=== PATIENT | female | born 1995 | race Caucasian/White ===

== ENCOUNTER 2019-07-03 23:30 | Outpatient (CLI) | payer MEDICAID ==
[~2019-07-03] VITALS: Ht 154.9 cm; Wt 80.9 kg
--- NOTE | 2019-07-03 23:35 | NUR ---
SARAI PALACIOS presented to unit via ambulatory from ED, accompanied by s/o, with c/o CONTRACTIONS. SARAI PALACIOS weighed, gowned, voided, and to bed. EFHM and TOCO applied, VS taken. SARAI PALACIOS oriented to bed controls, call light, TV, heat, and A/C controls. above details and further assessments completed per H.ANA CHAVES.
[2019-07-03 23:37] VITALS: BP 0/0
--- NOTE | 2019-07-03 23:45 | NUR ---
SVE PERFORMED 2-3CM 60%
[2019-07-03] MEDS ORDERED: ACYC400T PO (23:49)
[2019-07-04 00:06] LABS: BILIRUBIN,URINE NEGATIVE (NEGATIVE); CLARITY,URINE CLEAR; COLOR,URINE YELLOW; GLUCOSE, URINE (UA) NEGATIVE (NEGATIVE); KETONES,URINE NEGATIVE (NEGATIVE); LEUKOCYTE ESTERASE ,URINE 2+ (NEGATIVE); NITRITE,URINE NEGATIVE (NEGATIVE); PROTEIN,URINE NEGATIVE (NEGATIVE)
[2019-07-04 00:15] LABS: BACTERIA,URINE FEW /HPF
--- NOTE | 2019-07-04 01:00 | NUR ---
SVE PERFORMED 3CM 60%, BLOODY SHOW
--- NOTE | 2019-07-04 01:07 | NUR ---
notified of pt's arrival, sve, u/a results, and tracing. new orders received.
--- NOTE | 2019-07-04 01:15 | NUR ---
Discussed options with patient. Gave patient the option to be monitored for another hour or discharge home and return with they increase in pain. Pt discussed with s/o. After further discussion pt is going to stay and be monitored another hour.
--- NOTE | 2019-07-04 02:00 | NUR ---
sve performed. no cervical change noted. pt wishes to be discharged home.
--- NOTE | 2019-07-04 02:30 | NUR ---
Discharge paperwork discussed with pt. labor precautions given. pt verbalized understanding. pt discharged home with s/o at side.
--- NOTE | 2019-07-05 08:19 | Physician Query-Final Dx ---
PATRICK MCWILLIAMS 07/05/19 0819: Clinic Account Progress/Dx Physician Query: Please give diagnosis Please include # weeks gestation Date of Service Jul 03, 2019 at 23:30 DAREK DAVALOS MD 07/05/19 1907: Clinic Account Progress/Dx DIAGNOSIS: Diagnosis 39 weeks gestation Contractions without active labor PATRICK MCWILLIAMS Jul 05, 2019 08:19 DAREK DAVALOS MD Jul 05, 2019 19:07
== END 2019-07-04 02:30 | disposition home or self-care (01) ==
LOC: WSo 23:30 → LDRP 23:30 → WSo 07-04 02:30
PROVIDERS: ATTEND Family Medicine
DX: O62.9 Abnormality of forces of labor, unspecified (principal); Z3A.39 39 weeks gestation of pregnancy
CPT/HCPCS: 81000; 87088; 99213

== ENCOUNTER 2019-07-04 17:15 | Inpatient (IN) | payer MEDICAID ==
[2019-07-04] VITALS (34 sets, daily range): BP systolic 84–193; BP diastolic 50–83
[~2019-07-04] VITALS: Ht 154 cm; Wt 80.9 kg
[~2019-07-04 17:15] MED LIST: ACYC400T PO
--- NOTE | 2019-07-04 17:30 | NUR ---
SARAI PALACIOS presented to unit via w/c from ED, accompanied by s/o, with c/o contractions. Pt. weighed, gowned, voided, and to bed. EFHM and TOCO applied, VS taken. Pt. oriented to bed controls, call light, TV, heat, and A/C controls.
--- NOTE | 2019-07-04 17:35 | NUR ---
breathing with ctx's. SVE 5cm, 80%, -1. vertex. reports out to hospital last noc, was 2.5-3cm
--- NOTE | 2019-07-04 17:39 | NUR ---
was called on cell phone. no answer. message left.
--- NOTE | 2019-07-04 17:40 | NUR ---
returned phone call. reviewed admit c/o and SVE. admission orders received. will check with Dr. Gallo to see if available for delivery.
[2019-07-04] MEDS ORDERED: LACTATED RINGERS 1,000 ML IV ONE (17:41)
[2019-07-04] MEDS ORDERED: D5 LR IV SOLUTION 1,000 ML IV ONE (17:41)
--- NOTE | 2019-07-04 17:50 | NUR ---
#20g IV to Rt.hand x1 attempt by this RN. admission labs collected from site prior to LR bolus infusing via IV pump.
--- NOTE | 2019-07-04 18:03 | NUR ---
was called. no answer, message left on cell phone.
--- NOTE | 2019-07-04 18:08 | NUR ---
returned phone call. Dr. Gallo will be taking over care of pt. order received for IV Fentanyl
[2019-07-04] MEDS ORDERED: fentaNYL INJECTION 100 MCG/2 ML AMP IVP PRN (18:15)
[2019-07-04] MEDS ORDERED: D5 LR IV SOLUTION 1,000 ML IV SCH (18:17)
--- NOTE | 2019-07-04 18:20 | NUR ---
SVE 6cm, 90%, 0 station. small amount bloody show noted
--- NOTE | 2019-07-04 18:22 | NUR ---
Fentanyl 25mcg IV given. breathing with ctx's, crying.
[2019-07-04 18:25] LABS: BASOPHILS % (AUTO) 0 % (0-10); EOSINOPHILS % (AUTO) 0 % (0-10); HEMATOCRIT 37 % (35-52); HEMOGLOBIN 13.4 G/DL (11.5-16.0); LYMPHOCYTES # (AUTO) 1.7 X 10^3 (1.0-4.0); LYMPHOCYTES % (AUTO) 7 % (12-44); MEAN CORPUSCULAR HEMOGLOBIN 30 PG (25-34); MEAN CORPUSCULAR HGB CONC 36 G/DL (32-36); MEAN CORPUSCULAR VOLUME 83 FL (80-99); MEAN PLATELET VOLUME 10.5 FL (7.4-10.4); MONOCYTES # (AUTO) 0.9 X 10^3 (0.0-1.0); MONOCYTES % (AUTO) 4 % (0-12); NEUTROPHILS # (AUTO) 20.4 X 10^3 (1.8-7.8); NEUTROPHILS % (AUTO) 89 % (42-75); PLATELET COUNT 219 10^3/uL (130-400); RED CELL DISTRIBUTION WIDTH 12.5 % (10.0-14.5)
[2019-07-04 18:29] LABS: BILIRUBIN,URINE NEGATIVE (NEGATIVE); CLARITY,URINE CLEAR; COLOR,URINE YELLOW; GLUCOSE, URINE (UA) NEGATIVE (NEGATIVE); KETONES,URINE 1+ (NEGATIVE); LEUKOCYTE ESTERASE ,URINE NEGATIVE (NEGATIVE); NITRITE,URINE NEGATIVE (NEGATIVE); PH,URINE 8.5 (5-9); PROTEIN,URINE 1+ (NEGATIVE)
[2019-07-04 18:36] LABS: BACTERIA,URINE FEW /HPF
--- NOTE | 2019-07-04 18:38 | NUR ---
JORDIN Deng notified of pt's request for epidural placement.
--- NOTE | 2019-07-04 18:40 | NUR ---
was called with SVE update.
[2019-07-04 18:46] LABS: BAND NEUTROPHILS 6 %; LYMPHOCYTES % (MANUAL) 5 %; MONOCYTES % (MANUAL) 2 %; NEUTROPHILS % (MANUAL) 87 %; RBC MORPH NORMAL
[2019-07-04] MEDS ORDERED: OXYTOCIN PRE-MIX DRIP 500 ML IV ONE (18:48)
[2019-07-04] MEDS ORDERED: SUFENTA 0.6MCG/ML BUPIVA 0.125 100 ML ONE (18:48)
[2019-07-04] MEDS ORDERED: BUPIVACAINE 0.25% 30 ML (SENSORCAINE) VIAL ONE (19:15)
[2019-07-04] MEDS ORDERED: LIDOCAINE PF 2% 5 ML (XYLOCAINE) VIAL ONE (19:15)
[2019-07-04] MEDS ORDERED: LACTATED RINGERS 1,000 ML IV SCH (19:43)
[2019-07-04] MEDS ORDERED: EPIDURAL (SUFENTA 0.6MCG/ML BUPIVA 0.125%) 100 ML BAG EPI PRN (19:45)
[2019-07-04] MEDS ORDERED: diphenhydrAMINE 50 MG/ML INJ (BENADRYL) IV PRN (19:45)
[2019-07-04] MEDS ORDERED: ONDANSETRON 4 MG/2 ML (SDV) Z0FRAN IV PRN (19:45)
[2019-07-04] MEDS ORDERED: NALOXONE 0.4 MG/ML 1 ML (NARCAN) VIAL IV PRN (19:45)
[2019-07-04] MEDS ORDERED: OXYTOCIN PRE-MIX DRIP 500 ML IV SCH ×2 (20:27→22:25)
--- NOTE | 2019-07-04 20:35 | History & Physical-OB ---
OB - Chief Complaint & HPI Date/Time Date of Admission: Date of Admission: Jul 04, 2019 at 17:40 Date seen by a Provider: Jul 04, 2019 Time Seen by a Provider: 20:30 Chief Complaint/History OB-Reason for Admission/Chief: Onset of Labor Hx : 2 Hx Para: 0 Expected Date of Delivery: Jul 06, 2019 Gestational Age in Weeks: 39 Gestational Age in Days: 5 Other reason for admission: Onset of labor. Ctxs started last night. She was seen as an outpatient and did not have an cervical change and was sent home. States that ctxs started getting stronger this afternoon. Denies any LOF. Having good movement History of Labs O+, Ab neg Rub Imm HIV/HepB/RPR NR GC/Chyl neg Normal 1 hr GTT GBS neg Allergies and Home Medications Allergies Coded Allergies: Penicillins (Verified Allergy, Mild, 07/04/19) Home Medications Acyclovir 400 Mg Tablet, 400 MG PO DAILY, (Reported) Patient Home Medication List Home Medication List Reviewed: Yes OB - History Hx of Present Care: Yes Ultrasounds: Normal mid trimester US Obstetrical Complications: None Medical Complications: None Information Induced Hypertension: No Maternal Gestational Diabetes: No Hemorrhage: No Obstetrical History Hx : 2 Hx Para: 0 Number of Living Children: 0 Delivery History Adverse Rxn to Tranfusion: No Patient Past Medical History N/A Social History/Family History HIV/AIDS: No Recent Infectious Disease Expo: No Sexually Transmitted Disease: Yes (HSV) Alcohol Use: Denies Use Recreational Drug Use: No Smoking Cessation: Never smoker 2nd Hand Smoke Exposure: No Immunizations Tetanus Booster (TDap): Less than 5yrs (05/03/19) Date of Influenza Vaccine: Feb 23, 2019 Rubella: immune RPR/VDRL: Negative GBS Status: Negative HBsAG: Negative OB - Admission Exam Physical Exam Vitals: Vital Signs 07/04/19 19:45 Pulse 126 Resp 18 B/P (MAP) 98/60 (73) Pulse Ox 99 O2 Delivery Room Air HEENT: NCAT Heart: Rhythm Normal Lungs: Clear Abdomen: Gravid Extremities: Normal Reflexes: Normal Cervical Dilatation: 6cm Effacement: 100% Station: 0 Membranes: Ruptured Amniotic Fluid: Clear Heart Rate: 140's Decelerations: No Decelerations Contractions on Admission: 6-10 Minutes Apart Labs Laboratory Tests Test 2/9/20 17:30 07/04/19 17:50 Range/Units Urine Color YELLOW Urine Clarity CLEAR Urine pH 8.5 5-9 Urine Specific [place] 1.020 1.016-1.022 Urine Protein 1+ H NEGATIVE Urine Glucose (UA) NEGATIVE NEGATIVE Urine Ketones 1+ H NEGATIVE Urine Nitrite NEGATIVE NEGATIVE Urine Bilirubin NEGATIVE NEGATIVE Urine Urobilinogen 0.2 < = 1.0 MG/DL Urine Leukocyte Esterase NEGATIVE NEGATIVE Urine RBC (Auto) 2+ H NEGATIVE Urine RBC 10-25 H /HPF Urine WBC NONE /HPF Urine Squamous Epithelial Cells 10-25 H /HPF Urine Crystals NONE /LPF Urine Bacteria FEW H /HPF Urine Casts NONE /LPF Urine Mucus SMALL H /LPF Urine Culture Indicated NO White Blood Count 23.0 H 4.3-11.0 10^3/uL Red Blood Count 4.50 4.35-5.85 10^6/uL Hemoglobin 13.4 11.5-16.0 G/DL Hematocrit 37 35-52 % Mean Corpuscular Volume 83 80-99 FL Mean Corpuscular Hemoglobin 30 25-34 PG Mean Corpuscular Hemoglobin Concent 36 32-36 G/DL Red Cell Distribution Width 12.5 10.0-14.5 % Platelet Count 219 130-400 10^3/uL Mean Platelet Volume 10.5 H 7.4-10.4 FL Neutrophils (%) (Auto) 89 H 42-75 % Lymphocytes (%) (Auto) 7 L 12-44 % Monocytes (%) (Auto) 4 0-12 % Eosinophils (%) (Auto) 0 0-10 % Basophils (%) (Auto) 0 0-10 % Neutrophils # (Auto) 20.4 H 1.8-7.8 X 10^3 Lymphocytes # (Auto) 1.7 1.0-4.0 X 10^3 Monocytes # (Auto) 0.9 0.0-1.0 X 10^3 Eosinophils # (Auto) 0.0 0.0-0.3 10^3/uL Basophils # (Auto) 0.0 0.0-0.1 10^3/uL Neutrophils % (Manual) 87 % Lymphocytes % (Manual) 5 % Monocytes % (Manual) 2 % Band Neutrophils 6 % Blood Morphology Comment NORMAL OB - Assessment/Plan/Diagnosis Assessment Assessment: active labor Admission Dx Labor Admission Status: Inpatient Order (span 2 midnights) Reason for Inpatient Admission: Labor Plan Plan: Expectant Management Other Plan 23 yo @ 39.5 wga here in active labor Plan - Expectant management - Desire Epidural for pain control Copy Copies To 1: CRISPIN FERNANDEZ MD, HOLLY R MD Jul 04, 2019 20:35
[2019-07-04] MEDS ORDERED: MINERAL OIL CONCENTRATE 99.9% 15 ML UDC ONE (21:58)
[2019-07-04] MEDS ORDERED: CATHETER FLUSH 10 ML SYR IV SCH (22:00)
[2019-07-04] MEDS ORDERED: BENZOCAINE/MENTHOL (DERMOPLAST) 60 ML CAN TP PRN (22:30)
[2019-07-04] MEDS ORDERED: WITCH HAZEL(TUCKS) 40 EA JAR TOP PRN (22:30)
--- NOTE | 2019-07-04 22:40 | OB Labor & Delivery Record ---
Vag Delivery Note Vag Delivery Note Date of Delivery: 07/04/19 Preoperative Diagnosis: Courtney Jaquez is a (23 /Para 2 / 0,Gestational Age (wks)39.5 here in active labor Postoperative Diagnosis: Same Surgeon: CRISPIN FERNANDEZ Plant Facilities Technician: None Anesthesia: Epidural Delivery Type: @ 2205 Findings: Viable female infant, apgars 8/9, weight 7#0, 3175 Lacerations: none Intact placenta with 3 vessel cord. No nuchal cord, body cord or shoulder dystocia Estimated Blood Loss: 125 ml Complications: None Condition: Stable Description of Procedure: The patient is a 23 year old female who presented in active labor. She was admitted and informed consent was obtained. Her labor course was unremarkable. She progressed to complete dilatation and began to push. She was then set up for delivery. The infant's head was delivered atraumatically in the ESTELA position. The shoulders and remainder of the 's body were then delivered without difficulty. Upon delivery, the head was held below the level of the perineum and the mouth and nares were bulb suctioned. The cord was doubly clamped and cut and the was placed on maternal abdomen and attended to by the pediatric staff. An intact placenta with 3-vessel cord delivered via [place] and there was found to be minimal bleeding.~ Vigorous fundal massage was performed and the fundus was found to be firm. IV oxytocin was given. Examination of the vagina and perineum revealed no lacerations that required repair. Following the repair, sponge, instrument and needle counts were correct. Mom and baby were both in stable condition in the labor suite. Vitals - Labs Vital Signs - I&O Vital Signs Date Time Temp Pulse Resp B/P (MAP) Pulse Ox O2 Delivery O2 Flow Rate FiO2 07/04/19 21:45 98 18 173/73 (106) 99 Room Air 07/04/19 21:30 94 18 108/69 (82) 99 Room Air 07/04/19 21:15 103 18 107/66 (80) 99 Room Air 07/04/19 21:07 36.8 106 18 99 Room Air 07/04/19 21:00 106 18 108/69 (82) 99 Room Air 07/04/19 20:40 80 18 101/59 (73) 99 Room Air 07/04/19 20:35 82 18 97/56 (70) 99 Room Air 07/04/19 20:30 88 18 100/57 (71) 99 Room Air 07/04/19 20:25 81 18 98/59 (72) 99 Room Air 07/04/19 20:20 75 18 95/56 (69) 99 Room Air 07/04/19 20:15 88 18 112/68 (83) 99 Room Air 07/04/19 20:10 75 18 106/74 (85) 100 Room Air 07/04/19 20:05 84 18 108/63 (78) 100 Room Air 07/04/19 20:02 88 18 111/66 (81) 100 Room Air 07/04/19 19:59 87 18 103/60 (74) 99 Room Air 07/04/19 19:56 106 18 85/51 (62) 99 Room Air 07/04/19 19:53 106 18 84/54 (64) 99 Room Air 07/04/19 19:50 36.8 113 18 88/53 (65) 99 Room Air 07/04/19 19:45 126 18 98/60 (73) 99 Room Air 07/04/19 19:40 113 18 105/64 (78) 99 Room Air 07/04/19 19:35 63 18 133/78 (96) 100 Room Air 07/04/19 19:30 101 18 137/73 (94) Room Air 07/04/19 19:25 59 18 118/80 (93) Room Air 07/04/19 19:15 56 18 111/66 (81) Room Air 07/04/19 19:00 55 18 107/64 (78) Room Air 07/04/19 18:45 36.2 55 18 111/63 (79) Room Air 07/04/19 17:32 62 18 95/50 (65) 98 Room Air Labs Laboratory Tests 07/04/19 17:30: Urine Color YELLOW, Urine Clarity CLEAR, Urine pH 8.5, Urine Specific [place] 1.020, Urine Protein 1+H, Urine Glucose (UA) NEGATIVE, Urine Ketones 1+H, Urine Nitrite NEGATIVE, Urine Bilirubin NEGATIVE, Urine Urobilinogen 0.2, Urine Leukocyte Esterase NEGATIVE, Urine RBC (Auto) 2+H, Urine RBC 10-25H, Urine WBC NONE, Urine Squamous Epithelial Cells 10-25H, Urine Crystals NONE, Urine Bacte chang FEWH, Urine Casts NONE, Urine Mucus SMALLH, Urine Culture Indicated NO 07/04/19 17:50: White Blood Count 23.0H, Red Blood Count 4.50, Hemoglobin 13.4, Hematocrit 37, Mean Corpuscular Volume 83, Mean Corpuscular Hemoglobin 30, Mean Corpuscular Hemoglobin Concent 36, Red Cell Distribution Width 12.5, Platelet Count 219, Mean Platelet Volume 10.5H, Neutrophils (%) (Auto) 89H, Lymphocytes (%) (Auto) 7L, Monocytes (%) (Auto) 4, Eosinophils (%) (Auto) 0, Basophils (%) (Auto) 0, Neutrophils # (Auto) 20.4H, Lymphocytes # (Auto) 1.7, Monocytes # (Auto) 0.9, Eosinophils # (Auto) 0.0, Basophils # (Auto) 0.0, Neutrophils % (Manual) 87, Lymphocytes % (Manual) 5, Monocytes % (Manual) 2, Band Neutrophils 6, Blood Morphology Comment NORMAL CRISPIN FERNANDEZ MD Jul 04, 2019 22:40
[2019-07-05] VITALS: BP 102/59
[2019-07-05] MEDS ORDERED: ACETAMINOPHEN 500 MG TAB (TYLENOL) ONE (00:17)
[2019-07-05] MEDS: ACETAMINOPHEN 500 MG TAB (TYLENOL) PO SCH ×3 (00:29→22:03)
[2019-07-05] MEDS: IBUPROFEN 600 MG (MOTRIN) TAB PO SCH ×4 (00:29→22:03)
--- NOTE | 2019-07-05 00:30 | NUR ---
ff 1 below. light rubra noted. Pericare completed. gown changed. epidural cath removed. pt assisted to w'c and taken to room 309. pt ambulated to the bathroom. positive void. pericare completed. pt ambulated to bed. orientated to room. info papers discussed. pt denies any needs at this time. will continue to monitor.
[2019-07-05 03:56] VITALS: BP 86/55
[2019-07-05] MEDS ORDERED: CATHETER FLUSH 10 ML SYR IV SCH (06:00)
[2019-07-05 06:49] LABS: BASOPHILS % (AUTO) 0 % (0-10); EOSINOPHILS % (AUTO) 0 % (0-10); HEMATOCRIT 32 % (35-52); HEMOGLOBIN 11.1 G/DL (11.5-16.0); LYMPHOCYTES # (AUTO) 2.7 X 10^3 (1.0-4.0); LYMPHOCYTES % (AUTO) 11 % (12-44); MEAN CORPUSCULAR HEMOGLOBIN 30 PG (25-34); MEAN CORPUSCULAR HGB CONC 35 G/DL (32-36); MEAN CORPUSCULAR VOLUME 85 FL (80-99); MEAN PLATELET VOLUME 10.4 FL (7.4-10.4); MONOCYTES # (AUTO) 2.1 X 10^3 (0.0-1.0); MONOCYTES % (AUTO) 8 % (0-12); NEUTROPHILS # (AUTO) 20.2 X 10^3 (1.8-7.8); NEUTROPHILS % (AUTO) 81 % (42-75); PLATELET COUNT 239 10^3/uL (130-400); RED CELL DISTRIBUTION WIDTH 12.5 % (10.0-14.5)
--- NOTE | 2019-07-05 07:01 | Anesthesia-Regional Post-Op ---
Regional Patient Condition Mental Status: Alert, Oriented x3 Circulation: Same as Pre-Op Headache: Absent Sensation: Full Recovery Motor Block: Absent Post Op Complications Complications None Follow Up Care/Instructions Patient Instructions None needed. Anesthesia/Patient Condition Patient is doing well, no complaints, stable vital signs, no apparent adverse anesthesia problems. No complications reported per nursing. LEANNE CHACON CRNA Jul 05, 2019 07:01
[2019-07-05] MEDS: DOCUSATE SODIUM 100 MG (COLACE) CAP PO SCH ×2 (08:23→22:03)
[2019-07-05 08:30] VITALS: BP 109/63
--- NOTE | 2019-07-05 09:00 | Progress Note ---
Subjective Subjective/Events-last exam Doing well. Pain controlled. Bleeding normal. Objective Exam Last Set of Vital Signs Vital Signs Date Time Temp Pulse Resp B/P (MAP) Pulse Ox O2 Delivery O2 Flow Rate FiO2 07/05/19 03:56 36.9 87 18 86/55 (65) 99 Room Air Capillary Refill : NONE I&O Intake and Output 07/05/19 00:00 Intake Total 1000 ml Balance 1000 ml Intake IV Total 1000 ml Daily Weight Change No General: Alert, Oriented X3, Cooperative Psych/Mental Status: Mood NL Results/Procedures Lab Laboratory Tests 07/04/19 17:30: Urine Color YELLOW, Urine Clarity CLEAR, Urine pH 8.5, Urine Specific [place] 1.020, Urine Protein 1+H, Urine Glucose (UA) NEGATIVE, Urine Ketones 1+H, Urine Nitrite NEGATIVE, Urine Bilirubin NEGATIVE, Urine Urobilinogen 0.2, Urine Leukocyte Esterase NEGATIVE, Urine RBC (Auto) 2+H, Urine RBC 10-25H, Urine WBC NONE, Urine Squamous Epithelial Cells 10-25H, Urine Crystals NONE, Urine B acteria FEWH, Urine Casts NONE, Urine Mucus SMALLH, Urine Culture Indicated NO 07/04/19 17:50: White Blood Count 23.0H, Red Blood Count 4.50, Hemoglobin 13.4, Hematocrit 37, Mean Corpuscular Volume 83, Mean Corpuscular Hemoglobin 30, Mean Corpuscular Hemoglobin Concent 36, Red Cell Distribution Width 12.5, Platelet Count 219, Mean Platelet Volume 10.5H, Neutrophils (%) (Auto) 89H, Lymphocytes (%) (Auto) 7 L, Monocytes (%) (Auto) 4, Eosinophils (%) (Auto) 0, Basophils (%) (Auto) 0, Neutrophils # (Auto) 20.4H, Lymphocytes # (Auto) 1.7, Monocytes # (Auto) 0.9, Eosinophils # (Auto) 0.0, Basophils # (Auto) 0.0, Neutrophils % (Manual) 87, Lymphocytes % (Manual) 5, Monocytes % (Manual) 2, Band Neutrophils 6, Blood Morphology Comment NORMAL 07/05/19 06:30: White Blood Count 25.0H, Red Blood Count 3.74L, Hemoglobin 11.1L, Hematocrit 32L , Mean Corpuscular Volume 85, Mean Corpuscular Hemoglobin 30, Mean Corpuscular Hemoglobin Concent 35, Red Cell Distribution Width 12.5, Platelet Count 239, Mean Platelet Volume 10.4, Neutrophils (%) (Auto) 81H, Lymphocytes (%) (Auto) 11L, Monocytes (%) (Auto) 8, Eosinophils (%) (Auto) 0, Basophils (%) (Auto) 0, Neutrophils # (Auto) 20.2H, Lymphocytes # (Auto) 2.7, Monocytes # (Auto) 2.1H, Eosinophils # (Auto) 0.0, Basophils # (Auto) 0.0 Assessment/Plan Assessment/Plan Assessment & Plan day #1 s/p - routine care - anticipate DC tomorrow. Clinical Quality Measures DVT/VTE Risk/Contraindication: Risk Factor Score Per Nursin RFS Level Per Nursing on Admit: 1=Low/No VTE PPEMILE STOUT DO Jul 05, 2019 09:00
[2019-07-05 14:55] VITALS: BP 108/65
[2019-07-05 22:03] VITALS: BP 98/59
[2019-07-06 04:55] VITALS: BP 117/73
[2019-07-06] MEDS: IBUPROFEN 600 MG (MOTRIN) TAB PO SCH ×3 (04:55→10:24)
[2019-07-06] MEDS: ACETAMINOPHEN 500 MG TAB (TYLENOL) PO SCH (05:46)
[2019-07-06 08:00] VITALS: BP 102/78
--- NOTE | 2019-07-06 09:00 | NUR ---
A.M. ASSESSMENT COMPLETED. VSS. PLAN TO GO HOME TODAY.
[2019-07-06] MEDS: DOCUSATE SODIUM 100 MG (COLACE) CAP PO SCH (09:07)
[2019-07-06] MEDS ORDERED: IBUP-844 PO (09:42)
--- NOTE | 2019-07-06 09:45 | Short Stay Summary ---
Discharge Summary Hospital Course Final Diagnosis: s/p at 39wk Hospital Course Date of Admission: Jul 04, 2019 at 17:40 Admission Diagnosis : , spontaneous onset of labor at 39w5d Family Physician/Provider: Crispin Gallo MD Date of Discharge: 07/06/19 Discharge Diagnosis: , spontaneous onset of labor at 39w5d s/p Hospital Course: Routine course. Labs and Pending Lab Test: Home Meds Active Reported Acyclovir 400 Mg Tablet 400 Mg PO DAILY Assessment/Pt Instructions follow-up with Dr. Gallo in 6wk. Discharge Instructions Discharge Diet: No Restrictions Activity as Tolerated: Yes Discharge Physical Examination General Appearance: Alert, Oriented X3, Cooperative Psych/Mental Status: Mood NL Allergies: Coded Allergies: Penicillins (Verified Allergy, Mild, 07/04/19) Copy Copies To 1: CRISPIN GALLO MD Discharge Summary Date of Admission Jul 04, 2019 at 17:40 Date of Discharge Clinical Quality Measures DVT/VTE Risk/Contraindication: Risk Factor Score Per Nursin RFS Level Per Nursing on Admit: 1=Low/No VTE PPX EMILE CHANCE DO Jul 06, 2019 09:45
--- NOTE | 2019-07-06 10:35 | NUR ---
DISCHARGE INSTRUCTIONS REVIEWED WITH COPY TO PT. STATES UNDERSTANDING OF ALL INSTRUCTIONS AND NEED TO F/U SCHEDULED AND NEEDED.
[2019-07-06 11:45] VITALS: BP 102/78
--- NOTE | 2019-07-06 11:45 | NUR ---
DISMISSED AMB FROM [facility] WITH INFANT TO FAMILY CAR IN STABLE CONDITION ACC BY PARENTS, S.OAubrey, AND Andrea LEGGETT RN.
== END 2019-07-06 11:45 | disposition home or self-care (01) | DRG 807 ==
LOC: WSo 17:15 → LDRP 17:15 → WSo 17:40 → LDRP 07-05 02:53
PROVIDERS: ADMIT Family Medicine; ATTEND Family Medicine
PROC: 10E0XZZ Delivery of Products of Conception, External Approach (ICD-10-PCS; principal; 2019-07-04)
DX: O98.32 Other infections with a predominantly sexual mode of transmission complicating childbirth (principal); A60.09 Herpesviral infection of other urogenital tract; Z3A.39 39 weeks gestation of pregnancy; Z37.0 Single live birth; Z79.899 Other long term (current) drug therapy
CPT/HCPCS: 36415; 81000; 85007; 85025; 85027; 86850; 86900; 86901; 99212

== ENCOUNTER 2022-03-20 06:00 | Inpatient (IN) | payer MEDICAID ==
[~2022-03-20] VITALS: Ht 154.9 cm; Wt 79.8 kg
[2022-03-20] VITALS (54 sets, daily range): BP systolic 86–161; BP diastolic 51–78
[~2022-03-20 06:00] MED LIST changes: -ACYC400T PO; +ACYC400T21 PO; +IBUP-844 PO
[2022-03-20] MEDS ORDERED: MINERAL OIL 30 ML UDC TOP PRN (06:15)
[2022-03-20] MEDS ORDERED: OXYTOCIN PRE-MIX DRIP 500 ML IV SCH (06:15)
[2022-03-20 06:28] LABS: BILIRUBIN,URINE NEGATIVE (NEGATIVE); CLARITY,URINE CLEAR; COLOR,URINE YELLOW; GLUCOSE, URINE (UA) NEGATIVE (NEGATIVE); KETONES,URINE NEGATIVE (NEGATIVE); LEUKOCYTE ESTERASE ,URINE 2+ (NEGATIVE); NITRITE,URINE NEGATIVE (NEGATIVE); PH,URINE 6.5 (5-9); PROTEIN,URINE NEGATIVE (NEGATIVE)
[2022-03-20 06:35] LABS: BACTERIA,URINE MODERATE /HPF
[2022-03-20 06:55] LABS: BASOPHILS % (AUTO) 0 % (0-10); EOSINOPHILS # (AUTO) 0.1 10^3/uL (0.0-0.3); EOSINOPHILS % (AUTO) 1 % (0-10); HEMATOCRIT 37 % (35-52); HEMOGLOBIN 12.9 g/dL (11.5-16.0); LYMPHOCYTES # (AUTO) 1.7 10^3/uL (1.0-4.0); LYMPHOCYTES % (AUTO) 16 % (12-44); MEAN CORPUSCULAR HEMOGLOBIN 29 pg (25-34); MEAN CORPUSCULAR HGB CONC 35 g/dL (32-36); MEAN CORPUSCULAR VOLUME 83 fL (80-99); MEAN PLATELET VOLUME 10.2 fL (9.0-12.2); MONOCYTES # (AUTO) 0.8 10^3/uL (0.0-1.0); MONOCYTES % (AUTO) 7 % (0-12); NEUTROPHILS # (AUTO) 8.2 10^3/uL (1.8-7.8); NEUTROPHILS % (AUTO) 76 % (42-75); PLATELET COUNT 218 10^3/uL (130-400); WHITE BLOOD COUNT 10.8 10^3/uL (4.3-11.0)
[2022-03-20] MEDS: D5 LR IV SOLUTION 1,000 ML IV SCH ×2 (07:50→15:30)
[2022-03-20] MEDS ORDERED: fentaNYL 2 mcg/ml BUPIVA 0.125 100 ML ONE (09:22)
[2022-03-20] MEDS ORDERED: fentaNYL INJ 100 MCG/2 ML AMP ONE (10:11)
[2022-03-20] MEDS ORDERED: LIDOCAINE PF 2% 5 ML (XYLOCAINE) VIAL ONE (10:11)
[2022-03-20] MEDS ORDERED: LACTATED RINGERS 1,000 ML IV SCH (11:15)
[2022-03-20] MEDS ORDERED: ONDANSETRON 4 MG/2 ML (SDV) Z0FRAN IV PRN (11:15)
[2022-03-20] MEDS ORDERED: fentaNYL 2 mcg/ml BUPIVA 0.125 100 ML EPI SCH (11:15)
[2022-03-20] MEDS ORDERED: diphenhydrAMINE 50 MG/ML INJ (BENADRYL) IV PRN (11:15)
[2022-03-20] MEDS ORDERED: METOCLOPRAMIDE INJ 10 MG/2 ML (REGLAN) IV PRN (11:15)
[2022-03-20] MEDS ORDERED: NALOXONE 0.4 MG/ML 1 ML (NARCAN) VIAL IV PRN ×2 (11:15)
[2022-03-20] MEDS ORDERED: PREN-37 PO (11:37)
[2022-03-20] MEDS ORDERED: CATHETER FLUSH 10 ML SYR IV SCH ×2 (14:00→22:00)
[2022-03-20] MEDS ORDERED: OXYTOCIN PRE-MIX DRIP 500 ML IV ONE (16:22)
[2022-03-20] MEDS: OXYTOCIN PRE-MIX DRIP 500 ML IV SCH ×2 (16:23→18:31)
[2022-03-20] MEDS ORDERED: WITCH HAZEL(TUCKS) 40 EA JAR TOP PRN (17:00)
[2022-03-20] MEDS ORDERED: BENZOCAINE/MENTHOL (DERMOPLAST) 56 ML CAN TP PRN (17:00)
[2022-03-20] MEDS ORDERED: MEASLES,MUMPS,RUBELLA 1 EA INJ SQ ONE (17:00)
[2022-03-20] MEDS ORDERED: TETANUS,DIPTH,PERTUSS P/F (BOOSTRIX) 0.5 ML VIAL IM ONE (17:00)
--- NOTE | 2022-03-20 17:29 | History & Physical-OB ---
OB - Chief Complaint & HPI Date/Time Date of Admission: Date of Admission: Mar 20, 2022 at 06:05 Date seen by a Provider: Mar 20, 2022 Time Seen by a Provider: 09:15 Chief Complaint/History OB-Reason for Admission/Chief: Induction of Labor (Elective) Hx : 3 Hx Para: 1 Expected Date of Delivery: Mar 20, 2022 Gestational Age in Weeks: 40 Gestational Age in Days: 0 Indication for induction: other (Elective) History of Labs O+, Ab neg, Rub Imm HIV/RPR/HepB/C Abnormal 1 hr GTT and normal 3 hr GTT GBS neg Allergies and Home Medications Allergies Coded Allergies: Penicillins (Verified Allergy, Mild, 07/04/19) Patient Home Medication List Home Medication List Reviewed: Yes Vit/Iron Fumarate/FA ( Tablet) 27 Mg Iron-800 Mcg Tablet, 1 EACH PO DAILY, (Reported) Entered as Reported by: HAWK KAUR on 03/20/22 1137 Last Action: New Order Discontinued Medications Ibuprofen (Ibu) 600 Mg Tablet, 600 MG PO Q6HR Discontinued Reason: No Longer Taking Prescribed by: EMILE CHANCE on 07/06/19 0948 Last Action: Discontinued OB - History Hx of Present Care: Yes Ultrasounds: Normal mid trimester US Obstetrical Complications: None Medical Complications: None Information Induced Hypertension: No Maternal Gestational Diabetes: No Hemorrhage: No Obstetrical History Hx : 3 Hx Para: 1 Hx # Term Pregnancies: 1 Number of Living Children: 1 Delivery History Adverse Rxn to Tranfusion: No Patient Past Medical History N/A Social History/Family History Alcohol Use: Denies Use Recreational Drug Use: No Smoking Cessation: Never smoker 2nd Hand Smoke Exposure: No Immunizations Influenza Vaccine Up-to-Date: No; Not Current Hepatitis A: No Hepatitis B: No Tetanus Booster (TDap): Less than 5yrs Rubella: immune RPR/VDRL: Negative GBS Status: Negative HBsAG: Negative OB - Admission Exam Physical Exam Vitals: Vital Signs 03/20/22 03/20/22 12:45 14:15 Temp 36.3 Pulse 73 Resp 18 B/P (MAP) 103/65 (78) Pulse Ox 98 O2 Delivery Room Air HEENT: NCAT Heart: Rhythm Normal Lungs: Clear Abdomen: Gravid Cervical Dilatation: 3cm Effacement: 100% Station: 0 Membranes: Intact Heart Rate: 140's Accelerations: Accelerations Present Decelerations: No Decelerations Senior Care Variability: Average (6-25) Contractions on Admission: 6-10 Minutes Apart Intensity: Moderate Gordon Scoring Tool (Modified) Dilation (cm): 3-4cm (2) Effacement (%): 51-79% (2) Descent/Station: -1,0 (2) Cervix Consistency: Medium(1) Cervix Position: Anterior (2) Add 1 point for: Each previous vaginal delivery (1) Gordon Score: 9 Labs Laboratory Tests Test 03/20/22 06:20 03/20/22 06:51 Range/Units Urine Color YELLOW Urine Clarity CLEAR Urine pH 6.5 5-9 Urine Specific [place] 1.015 L 1.016-1.022 Urine Protein NEGATIVE NEGATIVE Urine Glucose (UA) NEGATIVE NEGATIVE Urine Ketones NEGATIVE NEGATIVE Urine Nitrite NEGATIVE NEGATIVE Urine Bilirubin NEGATIVE NEGATIVE Urine Urobilinogen 0.2 < = 1.0 MG/DL Urine Leukocyte Esterase 2+ H NEGATIVE Urine RBC (Auto) NEGATIVE NEGATIVE Urine RBC NONE /HPF Urine WBC 10-25 H /HPF Urine Squamous Epithelial Cells 2-5 /HPF Urine Crystals NONE /LPF Urine Bacteria MODERATE H /HPF Urine Casts NONE /LPF Urine Mucus NEGATIVE /LPF Urine Culture Indicated YES White Blood Count 10.8 4.3-11.0 10^3/uL Red Blood Count 4.39 3.80-5.11 10^6/uL Hemoglobin 12.9 11.5-16.0 g/dL Hematocrit 37 35-52 % Mean Corpuscular Volume 83 80-99 fL Mean Corpuscular Hemoglobin 29 25-34 pg Mean Corpuscular Hemoglobin Concent 35 32-36 g/dL Red Cell Distribution Width 12.3 10.0-14.5 % Platelet Count 218 130-400 10^3/uL Mean Platelet Volume 10.2 9.0-12.2 fL Immature Granulocyte % (Auto) 1 % Neutrophils (%) (Auto) 76 H 42-75 % Lymphocytes (%) (Auto) 16 12-44 % Monocytes (%) (Auto) 7 0-12 % Eosinophils (%) (Auto) 1 0-10 % Basophils (%) (Auto) 0 0-10 % Neutrophils # (Auto) 8.2 H 1.8-7.8 10^3/uL Lymphocytes # (Auto) 1.7 1.0-4.0 10^3/uL Monocytes # (Auto) 0.8 0.0-1.0 10^3/uL Eosinophils # (Auto) 0.1 0.0-0.3 10^3/uL Basophils # (Auto) 0.0 0.0-0.1 10^3/uL Immature Granulocyte # (Auto) 0.1 0.0-0.1 10^3/uL OB - Assessment/Plan/Diagnosis Assessment Assessment: induction of labor Admission Dx Third Trimester 40 weeks gestation Admission Status: Inpatient Order (span 2 midnights) Reason for Inpatient Admission: labor and delivery Plan Other Plan 26 yo @ 40.0 wga here for elective IOL Plan - Patient desires Epidural prior to AROM - AROM clear, 1025 - Augmented with pitocin - GBS neg Copy Copies To 1: CRISPIN FERNANDEZ MD, HOLLY R MD Mar 20, 2022 17:29
--- NOTE | 2022-03-20 17:43 | OB Labor & Delivery Record ---
Vag Delivery Note Vag Delivery Note Date of Delivery: 03/20/22 Preoperative Diagnosis: Courtney Jaquez is a (26 /Para / ,Gestational Age (wks)40.0 here for elective IOL Postoperative Diagnosis: Same Surgeon: CRISPIN FERNANDEZ MD Roll Up Operator: None Anesthesia: Epidural Delivery Type: @ 1548 Findings: Viable Female infant, apgars 8/9, weight Lacerations: None Intact placenta with 3 vessel cord. No nuchal cord, body cord or shoulder dystocia Estimated Blood Loss: 150 ml Complications: None Condition: Stable Description of Procedure: The patient is a 26 year old female who presented for elective IOL. She was admitted and informed consent was obtained. Her labor course was unremarkable. She progressed to complete dilatation and began to push. She was then set up for delivery. The infant's head was delivered atraumatically in the EYAD position. The shoulders and remainder of the infant's body were then delivered without difficulty. Vigorous . Upon delivery, the head was held below the level of the perineum and the mouth and nares were bulb suctioned. The cord was doubly clamped and cut by friend of mother after 3 min delay and the infant was attended to by the pediatric staff on maternal abdomen. An intact placenta with 3-vessel cord delivered via [place] and there was found to be minimal bleeding.~ Vigorous fundal massage was performed and the fundus was found to be firm. IV oxytocin was given. Examination of the vagina and perineum revealed no lacerations that require repair. Following the repair, sponge, instrument and needle counts were correct. Mom and baby were both in stable condition in the labor suite. Vitals - Labs Vital Signs - I&O Vital Signs Date Time Temp Pulse Resp B/P (MAP) Pulse Ox O2 Delivery O2 Flow Rate FiO2 03/20/22 14:15 36.3 73 18 103/65 (78) Room Air 03/20/22 14:00 18 108/61 (77) Room Air 03/20/22 13:45 75 18 109/70 (83) Room Air 03/20/22 13:30 81 18 115/77 (90) Room Air 03/20/22 13:15 88 18 102/69 (80) Room Air 03/20/22 13:00 64 18 89/55 (66) Room Air 03/20/22 12:45 61 18 91/52 (65) 98 Room Air 03/20/22 12:30 71 18 97/56 (70) 98 Room Air 03/20/22 12:15 36.4 78 18 103/57 (72) 98 Room Air 03/20/22 12:00 80 18 109/68 (82) 98 Room Air 03/20/22 11:45 76 18 98 Room Air 03/20/22 11:40 83 18 104/64 (77) 98 Room Air 03/20/22 11:30 88 18 101/66 (78) 98 Room Air 03/20/22 11:20 87 18 104/68 (80) 97 Room Air 03/20/22 11:15 70 18 106/62 (77) 98 Room Air 03/20/22 11:10 78 18 112/56 (74) 97 Room Air 03/20/22 11:05 74 18 103/67 (79) 99 Room Air 03/20/22 11:00 75 18 108/76 (87) 98 Room Air 03/20/22 10:56 81 18 121/78 (92) 99 Room Air 03/20/22 10:53 84 18 114/65 (81) 99 Room Air 03/20/22 10:50 88 18 113/67 (82) 99 Room Air 03/20/22 10:45 36.2 90 18 108/76 (87) 98 Room Air 03/20/22 10:43 90 18 108/76 (87) 98 Room Air 03/20/22 10:41 86 18 113/69 (84) 98 Room Air 03/20/22 10:39 88 18 118/66 (83) 98 Room Air 03/20/22 10:36 77 18 125/75 (92) 98 Room Air 03/20/22 10:33 76 18 105/65 (78) 99 Room Air 03/20/22 10:30 75 18 106/66 (79) 100 Room Air 03/20/22 10:25 67 18 116/68 (84) 100 Room Air 03/20/22 10:20 56 18 114/72 (86) 100 Room Air 03/20/22 10:15 57 18 132/70 (90) 100 Room Air 03/20/22 10:10 73 18 100/66 (77) 100 Room Air 03/20/22 10:00 78 18 110/73 (85) Room Air 03/20/22 09:45 67 18 86/52 (63) Room Air 03/20/22 09:30 36.4 67 18 101/56 (71) Room Air 03/20/22 09:15 77 18 86/51 (63) Room Air 03/20/22 09:00 63 18 98/67 (77) Room Air 03/20/22 08:45 71 18 104/61 (75) Room Air 03/20/22 08:30 Room Air 03/20/22 08:15 74 18 108/58 (75) Room Air 03/20/22 07:40 36.3 78 18 113/69 (84) 98 Room Air 03/20/22 07:40 36.3 78 18 98 Room Air Labs Laboratory Tests 03/20/22 06:20: Urine Color YELLOW, Urine Clarity CLEAR, Urine pH 6.5, Urine Specific [place] 1.015L, Urine Protein NEGATIVE, Urine Glucose (UA) NEGATIVE, Urine Ketones NEGATIVE, Urine Nitrite NEGATIVE, Urine Bilirubin NEGATIVE, Urine Urobilinogen 0.2, Urine Leukocyte Esterase 2+H, Urine RBC (Auto) NEGATIVE, Urine RBC NONE, Urine WBC 10-25H, Urine Squamous Epithelial Cells 2-5, Urine Crystals NONE, Urine Bacteria MODERATEH, Urine Casts NONE, Urine Mucus NEGATIVE, Urine Culture Indicated YES 03/20/22 06:51: White Blood Count 10.8, Red Blood Count 4.39, Hemoglobin 12.9, Hematocrit 37, Mean Corpuscular Volume 83, Mean Corpuscular Hemoglobin 29, Mean Corpuscular Hemoglobin Concent 35, Red Cell Distribution Width 12.3, Platelet Count 218, Mean Platelet Volume 10.2, Immature Granulocyte % (Auto) 1, Neutrophils (%) (Auto) 76H, Lymphocytes (%) (Auto) 16, Monocytes (%) (Auto) 7, Eosinophils (%) (Auto) 1, Basophils (%) (Auto) 0, Neutrophils # (Auto) 8.2H, Lymphocytes # (A uto) 1.7, Monocytes # (Auto) 0.8, Eosinophils # (Auto) 0.1, Basophils # (Auto) 0.0, Immature Granulocyte # (Auto) 0.1 CRISPIN FERNANDEZ MD Mar 20, 2022 17:43
[2022-03-20] MEDS: IBUPROFEN 600 MG (MOTRIN) TAB PO SCH (17:53)
[2022-03-20] MEDS: DOCUSATE SODIUM 100 MG (COLACE) CAP PO SCH (20:50)
[2022-03-21 00:48] VITALS: BP 111/74
[2022-03-21] MEDS: IBUPROFEN 600 MG (MOTRIN) TAB PO SCH ×3 (00:51→13:40)
[2022-03-21 04:18] VITALS: BP 101/68
[2022-03-21 06:06] LABS: BASOPHILS # (AUTO) 0.1 10^3/uL (0.0-0.1); BASOPHILS % (AUTO) 0 % (0-10); EOSINOPHILS # (AUTO) 0.1 10^3/uL (0.0-0.3); EOSINOPHILS % (AUTO) 1 % (0-10); HEMATOCRIT 29 % (35-52); HEMOGLOBIN 10.2 g/dL (11.5-16.0); LYMPHOCYTES # (AUTO) 2.5 10^3/uL (1.0-4.0); LYMPHOCYTES % (AUTO) 20 % (12-44); MEAN CORPUSCULAR HEMOGLOBIN 30 pg (25-34); MEAN CORPUSCULAR HGB CONC 35 g/dL (32-36); MEAN CORPUSCULAR VOLUME 86 fL (80-99); MEAN PLATELET VOLUME 10.3 fL (9.0-12.2); MONOCYTES % (AUTO) 8 % (0-12); NEUTROPHILS # (AUTO) 8.9 10^3/uL (1.8-7.8); NEUTROPHILS % (AUTO) 71 % (42-75); PLATELET COUNT 186 10^3/uL (130-400); WHITE BLOOD COUNT 12.5 10^3/uL (4.3-11.0)
[2022-03-21 10:30] VITALS: BP 107/63
[2022-03-21] MEDS: DOCUSATE SODIUM 100 MG (COLACE) CAP PO SCH (10:37)
--- NOTE | 2022-03-21 13:39 | Anesthesia-Regional Post-Op ---
Regional Patient Condition Mental Status: Alert, Oriented x3 Circulation: Same as Pre-Op Headache: Absent Sensation: Full Recovery Motor Block: Absent Post Op Complications Complications None Follow Up Care/Instructions Patient Instructions None needed. Anesthesia/Patient Condition Patient is doing well, no complaints, stable vital signs, no apparent adverse anesthesia problems. No complications reported per nursing. DELANEY TEJADA CRNA Mar 21, 2022 13:39
[2022-03-21 13:40] VITALS: BP 116/71
--- NOTE | 2022-03-21 14:55 | Discharge Summary ---
Diagnosis/Chief Complaint Date of Admission Mar 20, 2022 at 06:05 Date of Discharge 03/21/22 Admission Diagnosis Admission Diagnosis Third trimester 40 week gestation Discharge Diagnosis 40 completed gestation Anemia of acute blood loss Discharge Summary-Simple/Stand Procedures Epidural placement Discharge Physical Examination Allergies: Coded Allergies: Penicillins (Verified Allergy, Mild, 07/04/19) Vitals & I&Os Vital Sign - Last 12Hours Date Time Temp Pulse Resp B/P (MAP) Pulse Ox O2 Delivery O2 Flow Rate FiO2 03/21/22 04:18 37.0 66 16 101/68 (79) 100 Room Air 03/20/22 15:45 15.00 Intake and Output 03/21/22 00:00 Intake Total 2500 ml Balance 2500 ml General Appearance: Alert, Oriented X3, Cooperative, No Acute Distress Respiratory: Clear to Auscultation, Normal Air Movement Cardiovascular: Regular Rate, No Murmurs Abdominal: Normal Bowel Sounds, Soft, No Tenderness, No Masses Extremities: No Edema, No Tenderness/Swelling Neuro: Normal Speech, Cranial Nerves 3-12 NL Psych/Mental Status: Mental Status NL, Mood NL Hospital Course See final discharge diagnosis. Discussion & Recommendations 26 yo G3 now P2 delivered term female infant via @ 40.0 wga. Discharge Condition at discharge Stable Instructions to patient/family Please see electronic discharge instructions given to patient. Discharge Medications Reviewed and agree with Discharge Medication list on patient's Discharge Instruction sheet Copy Copies To 1: CRISPIN FERNANDEZ MD, HOLLY R MD Mar 21, 2022 14:54
[2022-03-21] MEDS ORDERED: IBUP-844 PO (15:06)
[2022-03-21] MEDS ORDERED: DOCU100C37 PO (15:06)
--- NOTE | 2022-03-21 15:08 | Discharge Summary ---
Discharge Inst-[facility] Reconcile Patient Problems Problems Reviewed?: Yes Depart Medications New, Converted or Re-Newed RX: Transmitted to Pharmacy New Medications: Docusate Sodium (Docusate Sodium) 100 Mg Capsule 100 MG PO BID, #28 CAP Ibuprofen (Ibu) 600 Mg Tablet 600 MG PO Q6H, #60 TAB Continued Medications: Vit/Iron Fumarate/FA ( Tablet) 27 Mg Iron-800 Mcg Tablet 1 EACH PO DAILY, TAB Follow Up/Instructions Goal/Follow Up: 6 week visit with Sabino Activity Activity: Activity as Tolerated Driving Instructions: You May Drive Nothing Inside Vagina: No Douching, No [place], No Tampons Diet Discharge Diet: No Restrictions Symptoms to Report to DrAubrey: Swelling Increased, Bleeding Excessive, Fever Over 101 Degrees F Copies To 1: CRISPIN FERNANDEZ MD, HOLLY R MD Mar 21, 2022 15:08
== END 2022-03-21 17:35 | disposition home or self-care (01) | DRG 806 ==
LOC: LDRP 06:05
PROVIDERS: ADMIT Family Medicine; ATTEND Family Medicine
PROC: 10E0XZZ Delivery of Products of Conception, External Approach (ICD-10-PCS; principal; 2022-03-20)
PROC: 10907ZC Drainage of Amniotic Fluid, Therapeutic from Products of Conception, Via Natural or Artificial Opening (ICD-10-PCS; 2022-03-20)
DX: O90.81 Anemia of the puerperium (principal); D62 Acute posthemorrhagic anemia; Z37.0 Single live birth; Z3A.40 40 weeks gestation of pregnancy
CPT/HCPCS: 36415; 81000; 85025; 86780; 86850; 86900; 86901; 87088